=== PATIENT | female | born 1975 | race Two or more races ===

== ENCOUNTER 2023-04-24 11:41 | Emergency (ER) | payer OTHER ==
[~2023-04-24] VITALS: Ht 162.6 cm; Wt 74.8 kg
[2023-04-24 13:16] LABS: HEMATOCRIT 34.9 % (36.0-45.00); HEMOGLOBIN 11.8 g/dL (12.0-15.00); MEAN CELL VOLUME 90.3 fL (80.00-100.00); MEAN CORPUSCULAR HEMOGLOBIN 30.7 pg (27.00-32.0); PLATELET COUNT 252 K/uL (150-450); RED BLOOD COUNT 3.86 M/uL (4.00-6.00); RED CELL DISTRIBUTION WIDTH 13.2 % (11.5-14.5)
[2023-04-24 13:42] LABS: CALCIUM 8.8 mg/dL (8.5-10.1); CREATININE SERUM 0.88 mg/dL (0.55-1.02); GFR 69.18; INR 1.01; PARTIAL THROMBOPLASTIN TIME 25.5 SECONDS (22.0-34.0); POTASSIUM 3.57 mEq/L (3.5-5.1); PROTHROMBIN TIME 10.6 SECONDS (9.0-11.5); TSH 0.564 uIU/mL (0.358-3.74)
[2023-04-24 13:54] LABS: URINE APPEARANCE Turbid; URINE BILIRRUBIN Small (NEGATIVE); URINE BLOOD Large; URINE COLOR Red; URINE GLUCOSE Negative (NEGATIVE); URINE LEUKOCYTE Small; URINE NITRATE Negative; URINE UROBILINOGEN 0.2 E.U./dl
[2023-04-24 13:58] LABS: URINE BACTERIA 365.3 uL (0.0-1933); URINE EPITHELIAL CELLS 10.5 uL (0.0-38.8); URINE WBC 97.9 uL (0.0-23.2)
[2023-04-24 14:07] LABS: URINE PROTEIN 100 (NEGATIVE); URINE RBC > 10558.9 uL (0.0-20.8)
== END 2023-04-24 14:44 | disposition home or self-care (01) ==
LOC: ER 11:41
PROVIDERS: General Practice
DX: N94.6 Dysmenorrhea, unspecified (principal); N93.8 Other specified abnormal uterine and vaginal bleeding